=== PATIENT | female | born 1985 | race Caucasian/White ===

== ENCOUNTER 2018-12-29 16:07 | Emergency (ER) | payer OTHER ==
[2018-12-29 16:15] VITALS: BP 132/71; PULSE 82; TEMP 98.3; BMI 29.2
--- NOTE | 2018-12-29 16:45 | PDOC ---
History of Present Illness - General Chief Complaint: ,Possible Stated Complaint: FETUS NOT MOVING Time Seen by Provider: 12/29/18 16:27 History Source: Patient Exam Limitations: Language Barrier (phone int used) - History of Present Illness Initial Comments: 12/29/18 16:40 Patient is 33F with history of ectopic , infertility here today because she states that she can not feel her baby move today. Denies abdominal pain, fever, chills, nausea, vomiting. Denies vaginal pain, discharge, bleeding. Patient states that she's concerned because her prior was an ectopic. Denies chest pain, shortness of breath, leg swelling. Past History - Past Medical History Allergies/Adverse Reactions: Allergies Allergy/AdvReac Type Severity Reaction Status Date / Time No Known Allergies Allergy Verified 12/29/18 17:14 Home Medications: Ambulatory Orders Vit 93/Iron Fum/Folic [ Formula Tablet] 1 tablet PO DAILY 12/29 COPD: No - Reproductive History (#): 1 - Suicide/Smoking/Psychosocial Hx Smoking History: Never smoked Hx Alcohol Use: No Drug/Substance Use Hx: No Substance Use Type: None Review of Systems - Review of Systems Comments:: 12/29/18 16:44 GENERAL/CONSTITUTIONAL: No fever or chills. No weakness. HEAD, EYES, EARS, NOSE AND THROAT: No change in vision. No sore throat. CARDIOVASCULAR: No chest pain or shortness of breath RESPIRATORY: No cough, wheezing, or hemoptysis. GASTROINTESTINAL: No nausea, vomiting, diarrhea or constipation. GENITOURINARY: No dysuria, frequency, or change in urination. MUSCULOSKELETAL: No joint or muscle swelling or pain. No neck or back pain. SKIN: No rash NEUROLOGIC: No headache, vertigo, loss of consciousness, or change in strength/ sensation. ALLERGIC/IMMUNOLOGIC: No hives or skin allergy. *Physical Exam - Vital Signs Last Vital Signs Temp Pulse Resp BP Pulse Ox 98.3 F 82 18 132/71 99 12/29/18 16:12 12/29/18 16:12 12/29/18 16:12 12/29/18 16:12 12/29/18 16:12 - Physical Exam Comments: 12/29/18 16:45 GENERAL: Awake, alert, and fully oriented, in no acute distress HEAD: No signs of trauma, normocephalic, atraumatic EYES: PERRLA, EOMI, sclera anicteric, conjunctiva clear ENT: Auricles normal inspection, hearing grossly normal, nares patent, oropharynx clear without exudates. Moist mucosa NECK: Normal ROM, supple, no lymphadenopathy, JVD, or masses LUNGS: No distress, speaks full sentences, clear to auscultation bilaterally HEART: Regular rate and rhythm, normal S1 and S2, no murmurs, rubs or gallops, peripheral pulses normal and equal bilaterally. ABDOMEN: Soft, nontender, normoactive bowel sounds. No guarding, no rebound. No masses EXTREMITIES: Normal inspection, Normal range of motion, no edema. No clubbing or cyanosis. NEUROLOGICAL: Cranial nerves II through XII grossly intact. Normal speech, normal gait, no focal sensorimotor deficits SKIN: Warm, Dry, normal turgor, no rashes or lesions noted. Moderate Sedation - Procedure Monitoring Vital Signs: Procedure Monitoring Vital Signs Temperature 98.3 F 12/29/18 16:12 Pulse Rate 82 12/29/18 16:12 Respiratory Rate 18 12/29/18 16:12 Blood Pressure 132/71 12/29/18 16:12 O2 Sat by Pulse Oximetry (%) 99 12/29/18 16:12 ED Treatment Course - LABORATORY CBC & Chemistry Diagram: 12/29/18 16:50 12/29/18 16:50 - RADIOLOGY Radiology Studies Ordered: Category Date Time Status TRANSVAGINAL US PREG [US] Stat Ultrasound 12/29/18 16:38 Ordered Medical Decision Making - Medical Decision Making 12/29/18 16:46 Patient is 33F with history of ectopic and infertility here today with concerns over her . No pain on exam. Will confirm , patient has outpatient follow up. 12/29/18 18:33 CBC normal. CMP normal. Serum preg elevated, 40k. TVUS shows demise, no other issues. Patient advised of results. Will discharge with outpatient ob follow up and expectant management. 12/29/18 18:54 Patient left before T&S completed. *DC/Admit/Observation/Transfer Diagnosis at time of Disposition: demise - Discharge Dispostion Disposition: HOME Condition at time of disposition: Good Decision to Admit order: No - Referrals - Patient Instructions Printed Discharge Instructions: DI for Miscarriage Additional Instructions: I am sorry, but you were found to have a miscarriage today. You should expect to have vaginal bleeding with some cramping in the next few days. Please return to the ED immediately if you have any new, worsening or concerning symptoms, especially increasing pain, shortness of breath, and fever. Please follow up with your OBGYN doctor this week. [phone] Lo siento, felipe se encontr que tuvo un aborto espontneo hoy. Debera esperar sangrado vaginal con clicos en los prximos lara. Regrese de inmediato a la rupa de emergencias si tiene sntomas nuevos, que empeoran o estn relacionados con ellos, especialmente dolor en aumento, falta de aliento y fiebre. Por favor madiha un seguimiento con bella doctor OBGYN esta semana. Print Language: BURUNDIAN - Post Discharge Activity
[2018-12-29 17:04] LABS: HEMATOCRIT 37.2 % (32.4-45.2); HEMOGLOBIN 13.1 GM/dL (10.7-15.3); MCH 31.9 pg (25.7-33.7); MCHC 35.3 g/dl (32.0-36.0); MEAN CELL VOLUME 90.5 fl (80-96); PLATELET COUNT 215 K/MM3 (134-434); RBC 4.11 M/mm3 (3.60-5.2); RDW 15.3 % (11.6-15.6); WHITE BLOOD COUNT 9.1 K/mm3 (4.0-10.0)
--- NOTE | 2018-12-29 17:24 | PDOC ---
Attending Attestation - HPI HPI: 12/29/18 18:13 The patient is a 33 year old female with past medical history significant for infertility presents to the emergency department with concern. The patient reports she was concerned that she couldnt feel her baby move. Denies fever, chills, chest pain, SOB, abdominal pain, back pain, dysuria, hematuria, vaginal bleeding or discharge. 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 PCP: Gerardo Loganton Azam. - Physicial Exam PE: 12/29/18 18:13 GENERAL: The patient is in no acute distress. HEAD: Normal with no signs of trauma. EYES: PERRLA, EOMI, sclera anicteric, conjunctiva clear. ENT: Ears normal, nares patent, oropharynx clear without exudates. Moist mucous membranes. NECK: Normal range of motion, supple without lymphadenopathy, JVD, or masses. LUNGS: Breath sounds equal, clear to auscultation bilaterally. No wheezes, and no crackles. HEART:Regular rate and rhythm, normal S1 and S2 without murmur, rub or gallop. ABDOMEN: Soft, nontender, normoactive bowel sounds. No guarding, no rebound. No masses palpable. EXTREMITIES: Normal range of motion, no edema. No clubbing or cyanosis. No erythema, or tenderness. NEUROLOGICAL: Cranial nerves II through XII grossly intact. Normal speech. No focal neurological deficits. MUSCULOSKELETAL: Back non-tender to palpation, no CVA tenderness SKIN: Warm, Dry, normal turgor, no rashes or lesions noted. - Medical Decision Making 12/29/18 18:11 DATE OF SERVICE: 2018-12-29 17:01:29 EXAM: Transabdominal and transvaginal OB ultrasound FINDINGS: Transabdominal sonography was performed. There is a single intrauterine fetus. Estimated gestational age according to CRL would be 8 weeks and 5 days however there is no cardiac activity visible. Findings suggest probable demise. There is no free fluid. The cervix is grossly closed. IMPRESSION: There is a single intrauterine fetus. Estimated gestational age according to CRL would be 8 weeks 5 days however there is no cardiac activity visible. Finding suggests demise. THIS DOCUMENT HAS BEEN ELECTRONICALLY SIGNED Silvestre Frances MD 12/29/2018 17:38 EST 12/29/18 18:12 Documentation prepared by Luz Marina Maharaj, acting as medical claims examiner for Vee Alvarado MD. <Luz Marina Maharaj - Last Filed: 12/29/18 18:12> - Resident Resident Name: Heri Rothman - ED Attending Attestation I have performed the following: I have examined & evaluated the patient, The case was reviewed & discussed with the resident, I agree w/resident's findings & plan, Exceptions are as noted - Medical Decision Making 12/29/18 17:39 Laboratory Tests 12/29/18 16:50 WBC 9.1 Hgb 13.1 Hct 37.2 Plt Count 215 12/29/18 18:36 Laboratory Tests 12/29/18 16:50 Sodium 137 Potassium 3.7 Chloride 107 Carbon Dioxide 20 L BUN 8 Creatinine 0.4 L Random Glucose 104 Beta HCG, Quant 85858.8 <Vee Alvarado - Last Filed: 12/29/18 18:37>
[2018-12-29 17:54] LABS: ALBUMIN 3.7 g/dl (3.4-5.0); ANION GAP 10 MMOL/L (8-16); BILIRUBIN,TOTAL 0.2 mg/dL (0.2-1); BLOOD UREA NITROGEN 8 mg/dL (7-18); CALCIUM 8.6 mg/dL (8.5-10.1); CHLORIDE 107 mmol/L (98-107); CO2 20 mmol/L (21-32); CREATININE 0.4 mg/dL (0.55-1.3); GLUCOSE,RANDOM 104 mg/dL (74-106); POTASSIUM 3.7 mmol/L (3.5-5.1); SGOT/AST 13 U/L (15-37); SGPT/ALT 26 U/L (13-61); SODIUM 137 mmol/L (136-145); TOT PROT 7.2 g/dl (6.4-8.2)
[2018-12-29 17:56] LABS: ALK PHOS 68 U/L (45-117)
== END 2018-12-29 18:53 | disposition home or self-care (01) ==
LOC: JER 16:07
DX: O26.891 Other specified pregnancy related conditions, first trimester (principal); O02.1 Missed abortion; Z3A.01 Less than 8 weeks gestation of pregnancy
CPT/HCPCS: 36415; 76817-TC; 80053; 84702; 85027; 86850; 86900; 86901; 99282-25

== ENCOUNTER 2019-02-04 10:31 | Emergency (ER) | payer OTHER ==
[2019-02-04 10:50] VITALS: BP 128/68; PULSE 62; TEMP 98.1; BMI 28.3
--- NOTE | 2019-02-04 11:57 | PDOC ---
History of Present Illness <Brielle Nelson - Last Filed: 02/04/19 13:06> - General History Source: Patient Exam Limitations: Language Barrier (Cyracom used. Georgian primarily. Diagram Clerk [id number]) <Ashley Christie - Last Filed: 02/05/19 08:22> - General Chief Complaint: Headache Stated Complaint: HEADACHE Time Seen by Provider: 02/04/19 11:27 Past History <Brielle Nelson - Last Filed: 02/04/19 13:06> - Travel Traveled outside of the country in the last 30 days: No Close contact w/someone who was outside of country & ill: No - Past Medical History COPD: No - Reproductive History (#): 1 Para: 0 Therapeutic (s) & number: No Tubal Ligation: No Spontaneous : 1 - Immunization History Immunization Up to Date: Yes - Suicide/Smoking/Psychosocial Hx Smoking History: Never smoked Hx Alcohol Use: No Drug/Substance Use Hx: No Substance Use Type: None <Ashley Christie - Last Filed: 02/05/19 08:22> - Past Medical History Allergies/Adverse Reactions: Allergies Allergy/AdvReac Type Severity Reaction Status Date / Time No Known Allergies Allergy Verified 02/04/19 10:47 Home Medications: Ambulatory Orders Vit 93/Iron Fum/Folic [ Formula Tablet] 1 tablet PO DAILY 12/29 Review of Systems - Review of Systems Able to Perform ROS?: Yes Comments:: 02/04/19 11:52 CONSTITUTIONAL: Absent: fever, chills, diaphoresis, generalized weakness, malaise, loss of appetite HEENT: Absent: rhinorrhea, nasal congestion, throat pain, throat swelling, difficulty swallowing, mouth swelling, ear pain, eye pain, visual Changes CARDIOVASCULAR: Absent: chest pain, loss of consciousness, palpitations, irregular heart rate, peripheral edema RESPIRATORY: Absent: cough, shortness of breath, dyspnea with exertion, orthopnea, wheezing, stridor, hemoptysis GASTROINTESTINAL: Absent: abdominal pain, abdominal distension, nausea, vomiting, diarrhea, constipation, melena, hematochezia GENITOURINARY: Absent: dysuria, frequency, urgency, hesitancy, hematuria, flank pain, genital pain MUSCULOSKELETAL: Absent: myalgia, arthralgia, joint swelling SKIN: Absent: rash, itching, pallor HEMATOLOGIC/IMMUNOLOGIC: Absent: easy bleeding, easy bruising, lymphadenopathy, frequent infections ENDOCRINE: Absent: unexplained weight gain, unexplained weight loss, heat intolerance, cold intolerance NEUROLOGIC: Present: headache, tingling to extremities Absent: focal weakness or paresthesias, dizziness, unsteady gait, seizure, mental status changes, bladder or bowel incontinence PSYCHIATRIC: Absent: anxiety, depression, suicidal or homicidal ideation, hallucinations. Is the patient limited Macedonian proficient: No <Ashley Christie - Last Filed: 02/05/19 08:22> *Physical Exam - Vital Signs Last Vital Signs Temp Pulse Resp BP Pulse Ox 98.1 F 62 17 128/68 99 02/04/19 10:47 02/04/19 10:47 02/04/19 10:47 02/04/19 10:47 02/04/19 10:47 <Brielle Nelson - Last Filed: 02/04/19 13:06> - Vital Signs Last Vital Signs Temp Pulse Resp BP Pulse Ox 98.1 F 62 17 128/68 99 02/04/19 10:47 02/04/19 10:47 02/04/19 10:47 02/04/19 10:47 02/04/19 10:47 - Physical Exam Comments: 02/04/19 11:53 GENERAL: Well developed, well nourished. Awake and alert. No acute distress. HEENT: Normocephalic, atraumatic. PERRLA, EOMI. No conjunctival pallor. Sclera are non- icteric. Moist mucous membranes. Oropharynx is clear. Increased fluid behind the R TM, no bulging or erythema . L TM normal appearing NECK: Supple. Full ROM. No JVD. Carotid pulses 2+ and symmetric, without bruits. No thyromegaly. No lymphadenopathy. MSK: Normal range of motion at all joints. No bony deformities or tenderness. No CVA tenderness. EXTREMITIES: No cyanosis. No clubbing. No edema. No calf tenderness. SKIN: Warm and dry. Normal capillary refill. No rashes. No jaundice. NEUROLOGICAL: Alert, awake, appropriate. Cranial nerves 2-12 intact. No deficits to light touch and temperature in face, upper extremities and lower extremities. No motor deficits in the in face, upper extremities and lower extremities. Normoreflexic in the upper and lower extremities. Normal speech. Toes are down- going bilaterally. Gait is normal without ataxia. PSYCHIATRIC: Cooperative. Good eye contact. Appropriate mood and affect. <Ashley Christie - Last Filed: 02/05/19 08:22> ED Treatment Course - ADDITIONAL ORDERS Additional order review: Laboratory Results 02/04/19 11:45 Urine HCG, Qual Negative - Medications Given in the ED: ED Medications Discontinued Medications Generic Name Dose Route Start Last Admin Trade Name Alec PRN Reason Stop Dose Admin Acetaminophen 1,000 mg 02/04/19 11:58 02/04/19 12:44 Ofirmev Injection - IVPB 02/04/19 11:59 1,000 mg ONCE ONE Administration Diphenhydramine HCl 12.5 mg 02/04/19 11:58 02/04/19 12:44 Benadryl Injection - IVPUSH 02/04/19 11:59 12.5 mg ONCE ONE Administration Sodium Chloride 1,000 mls @ 1,000 mls/hr 02/04/19 11:58 02/04/19 12:44 Normal Saline - IV 02/04/19 12:57 1,000 mls/hr ASDIR STA Administration Metoclopramide HCl 10 mg 02/04/19 11:58 02/04/19 12:44 Reglan Injection - IVPB 02/04/19 11:59 10 mg ONCE ONE Administration <Brielle Nelson - Last Filed: 02/04/19 13:06> Medical Decision Making - Medical Decision Making The patient was seen and evaluated in conjunction with midlevel provider under my direct supervision, ancillary studies were reviewed. I agree with the plan as outlined by GUCCI Christie. HPI, workup/dispo as outlined. VS reviewed, wnl. CT head unremarkable, meds given, headache treatment, reassess 02/04/19 13:06 <Brielle Nelson - Last Filed: 02/04/19 13:06> - Medical Decision Making 02/04/19 11:55 The patient is a 34-year-old female with past medical history of headaches, who presents to the ER today for headache lasting 2 weeks. Patient states that the headache started gradually and the pain got worse over time. She states that the pain goes around her forehead. She states that she feels numbness and tingling along the head as well as in the hands and feet bilaterally. She tried taking 2 Tylenol at home yesterday with little relief of her symptoms. Admits to associated nausea. Denies fevers, chills, neck pain, shortness of breath, difficulty breathing, vomiting, gait changes, LOC, head trauma weakness to the extremities. A/P: headache Suspect a complex migraine at this time Labs, urine, CT head ordered IV insert with reglan, benadryl and ofirmev ordered Low suspicion for ICH as symptoms have lasted longer than 2 weeks and did not have a sudden onset Re-evaluate 02/04/19 15:[address] is negative for acute pathology Pt reports relief of symptoms after reglan, Benadryl and ofirmev DC home with neuro consult I discussed the physical exam findings, ancillary test results and final diagnoses with the patient. I answered all of the patient's questions. The patient was satisfied with the care received and felt comfortable with the discharge plan and treatment plan. The Patient agrees to follow up with the primary care physician/specialist within 24-72 hours. Return precautions were given. <Ashley Christie - Last Filed: 02/05/19 08:22> *DC/Admit/Observation/Transfer <Brielle Nelson - Last Filed: 02/04/19 13:06> - Discharge Dispostion Decision to Admit order: No <Ashley Christie - Last Filed: 02/05/19 08:22> Diagnosis at time of Disposition: Headache Qualifiers: Headache type: unspecified Headache chronicity pattern: acute headache Intractability: not intractable Qualified Code(s): R51 - Headache - Discharge Dispostion Disposition: HOME Condition at time of disposition: Stable - Referrals Referrals: Alexander Horan DO [Staff Physician] - - Patient Instructions Printed Discharge Instructions: DI for Headache Additional Instructions: You were evaluated for your headache today Please take Motrin 600mg every 6 hours for the next 24 hours to prevent the headache from returning Drink plenty of fluids and get plenty of rest Follow up with neurology for further evaluation. Return to the ED for worsening pain, fever, visual changes or if you have any changes in your symptoms Te evaluaron por tu kathleenor de fiordailza hoy Painter Motrin 600 mg cada 6 horas abraham las prximas 24 horas para evitar que el dolor de fiordaliza regrese. Nathalia muchos lquidos y descansa mucho. Seguimiento con neurologa para bella posterior evaluacin. Regrese a la rupa de emergencias para empeorar el dolor, la fiebre, los cambios visuales o si tiene algn cambio en mariana sntomas. Print Language: GUAMANIAN - Post Discharge Activity Forms/Work/School Notes: Back to Work
[2019-02-04] MEDS ORDERED: METOCLOPRAMIDE HCL INJECTION 10 MG/2 ML VIAL IVPB ONE (11:58)
[2019-02-04] MEDS ORDERED: ACETAMINOPHEN 1000 MG/100 ML VIAL (NON FORMULARY) IVPB ONE (11:58)
[2019-02-04] MEDS ORDERED: SODIUM CHLORIDE 1,000 ML IV STA (11:58)
[2019-02-04] MEDS ORDERED: METOCLOPRAMIDE HCL INJECTION 10 MG/2 ML VIAL ONE (12:32)
[2019-02-04] MEDS ORDERED: ACETAMINOPHEN INJECTION 100 ML IVPB ONE (12:32)
== END 2019-02-04 17:13 | disposition home or self-care (01) ==
LOC: JER 10:31
PROC: 3E033GC Introduction of Other Therapeutic Substance into Peripheral Vein, Percutaneous Approach (ICD-10-PCS; principal; 2019-02-04)
PROC: 3E033GC Introduction of Other Therapeutic Substance into Peripheral Vein, Percutaneous Approach (ICD-10-PCS; 2019-02-04)
PROC: 3E033NZ Introduction of Analgesics, Hypnotics, Sedatives into Peripheral Vein, Percutaneous Approach (ICD-10-PCS; 2019-02-04)
DX: R51 Headache (principal)
CPT/HCPCS: 70450-TC; 84703; 96374; 96375; 99282-25; J0131; J7030

== ENCOUNTER 2019-03-31 22:25 | Emergency (ER) | payer OTHER ==
[2019-03-31 22:34] VITALS: BMI 30.7
[2019-03-31] MEDS ORDERED: METOCLOPRAMIDE HCL INJECTION 10 MG/2 ML VIAL IVPUSH ONE (23:14)
[2019-03-31] MEDS ORDERED: ACETAMINOPHEN 1000 MG/100 ML VIAL (NON FORMULARY) IVPB ONE (23:14)
[2019-03-31] MEDS ORDERED: ACETAMINOPHEN INJECTION 100 ML IVPB ONE (23:23)
[2019-03-31] MEDS ORDERED: METOCLOPRAMIDE HCL INJECTION 10 MG/2 ML VIAL ONE (23:23)
--- NOTE | 2019-04-01 00:39 | PDOC ---
History of Present Illness - General Chief Complaint: Headache Stated Complaint: SOB/HEADACHE Time Seen by Provider: 03/31/19 23:09 History Source: Patient Exam Limitations: No Limitations - History of Present Illness Initial Comments: 04/01/19 00:37 Patient is a 34-year-old female with history of headache presumed to be migraine here with complaints of headache since October. States that's she has seen a neurologist at [facility], MRI done noted to be negative, and was put on amitriptyline. Patient states that since she was attempting to get she decided to get off the amitriptyline and has not taken any medication since per the advice of the infertility specialist. States she has not taken anything for pain with continues to have continuous pain since October. Today she is having nausea and vomiting and after vomiting and had chest pain so is here for evaluation. She is concerned that something is wrong with her heart. PMD: at [facility] PMHX: As above PSOCHX: neg etoh, drug, cig ALL: NKDA GENERAL/CONSTITUTIONAL: No fever or chills. No weakness. No weight change. HEAD, EYES, EARS, NOSE AND THROAT: No change in vision. No ear pain or discharge. No sore throat. CARDIOVASCULAR: No chest pain or shortness of breath. RESPIRATORY: No cough, wheezing, or hemoptysis. GASTROINTESTINAL: (+) nausea, vomiting, (-) diarrhea or constipation. No rectal bleeding. GENITOURINARY: No dysuria, frequency, or change in urination. MUSCULOSKELETAL: No joint or muscle swelling or pain. No neck or back pain. SKIN AND BREASTS: No rash or easy bruising. NEUROLOGIC: (+) headache, (-) vertigo, loss of consciousness, or loss of sensation. PSYCHIATRIC: No depression or anxiety. ENDOCRINE: No increased thirst. No abnormal weight change. HEMATOLOGIC/LYMPHATIC: No anemia, easy bleeding, or history of blood clots. ALLERGIC/IMMUNOLOGIC: No hives or skin allergy. No latex allergy. GENERAL: The patient is awake, alert, and fully oriented, in mild distress. HEAD: Normal with no signs of trauma. EYES: Pupils equal, round and reactive to light, extraocular movements intact, sclera anicteric, conjunctiva clear. ENT: Ears normal, nares patent, oropharynx clear without exudates. Moist mucous membranes. NECK: Normal range of motion, supple without lymphadenopathy, JVD, or masses. LUNGS: Breath sounds equal, clear to auscultation bilaterally. No wheezes, and no crackles. HEART: Regular rate and rhythm, normal S1 and S2 without murmur, rub, (+) tenderness left chest. ABDOMEN: Soft, nontender, normoactive bowel sounds. No guarding, no rebound. No masses. EXTREMITIES: Normal range of motion, no edema. No clubbing or cyanosis. No cords, erythema, or tenderness. NEUROLOGICAL: Cranial nerves II through XII grossly intact. Normal speech, normal gait, or cerebella function intact PSYCH: Normal mood, normal affect. SKIN: Warm, Dry, normal turgor, no rashes or lesions noted. Past History - Past Medical History Allergies/Adverse Reactions: Allergies Allergy/AdvReac Type Severity Reaction Status Date / Time No Known Allergies Allergy Verified 03/31/19 22:34 Home Medications: Ambulatory Orders NK [No Known Home Medication] 03/31/19 COPD: No - Reproductive History (#): 1 Para: 0 Therapeutic (s) & number: No Tubal Ligation: No Spontaneous : 1 - Immunization History Immunization Up to Date: Yes - Suicide/Smoking/Psychosocial Hx Smoking History: Never smoked Hx Alcohol Use: No Drug/Substance Use Hx: No Substance Use Type: None *Physical Exam - Vital Signs Last Vital Signs Temp Pulse Resp BP Pulse Ox 97.8 F 78 18 137/91 100 03/31/19 22:32 03/31/19 22:32 03/31/19 22:32 03/31/19 22:32 03/31/19 22:32 ED Treatment Course - ADDITIONAL ORDERS Additional order review: Laboratory Results 03/31/19 23:40 Creatine Kinase 110 Troponin I < 0.02 - Medications Given in the ED: ED Medications Discontinued Medications Generic Name Dose Route Start Last Admin Trade Name Freq PRN Reason Stop Dose Admin Acetaminophen 1,000 mg 03/31/19 23:14 03/31/19 23:45 Ofirmev Injection - IVPB 03/31/19 23:15 1,000 mg ONCE ONE Administration Diphenhydramine HCl 25 mg 03/31/19 23:14 04/01/19 00:05 Benadryl Injection - IVPUSH 03/31/19 23:15 25 mg ONCE ONE Administration Metoclopramide HCl 10 mg 03/31/19 23:14 04/01/19 00:10 Reglan Injection - IVPUSH 03/31/19 23:15 10 mg ONCE ONE Administration Medical Decision Making - Medical Decision Making 04/01/19 00:37 Patient is a 34-year-old female with history of headache presumed to be migraine here with complaints of headache since October. States that's she has seen a neurologist at [facility], MRI done noted to be negative, and was put on amitriptyline. Patient states that since she was attempting to get she decided to get off the amitriptyline and has not taken any medication since per the advice of the infertility specialist. States she has not taken anything for pain with continues to have continuous pain since October. Today she is having nausea and vomiting and after vomiting and had chest pain so is here for evaluation. She is concerned that something is wrong with her heart. Symptoms consistent with migraine headache will treat symptomatically with Tylenol IV, Reglan IV, Benadryl IV, IV fluids. Left Chest pain which is reproducible, most consistent with chest wall pain. Will get a troponin and EKG EKG: SR rate 75, NAD, T-wave inversion in V4 04/01/19 00:47 Laboratory Tests 03/31/19 03/31/19 23:40 23:40 Creatine Kinase 110 Troponin I < 0.02 Serum , Qual Negative Patient is sleeping and resting comfortably.I discussed the physical exam findings, ancillary test results and final diagnoses with the patient. I answered all of the patient's questions. The patient was satisfied with the care received and felt comfortable with the discharge plan and treatment plan. The Patient agrees to follow up with the primary care physician within 24-72 hours. 04/01/19 03:45 *DC/Admit/Observation/Transfer Diagnosis at time of Disposition: Headache Qualifiers: Headache type: unspecified Headache chronicity pattern: unspecified pattern Intractability: not intractable Qualified Code(s): R51 - Headache Chest pain Qualifiers: Chest pain type: unspecified Qualified Code(s): R07.9 - Chest pain, unspecified - Discharge Dispostion Disposition: HOME Condition at time of disposition: Stable - Referrals - Patient Instructions Printed Discharge Instructions: DI for Migraine, DI for Chest Pain Additional Instructions: Your Discharge Instructions: You must call primary care physician within 24 hours to arrange follow-up. Return to the Emergency Department with any new, persistent or worsening symptoms, for fever, chills, SOB, dizziness or any other concerning changes that may occur. Must follow up with her neurologist and your primary care doctor in 1-2 days. - Post Discharge Activity
[2019-04-01 02:18] VITALS: BP 115/68; PULSE 80; TEMP 97.7
--- NOTE | 2019-04-01 15:15 | EKG ---
Test Reason : Blood Pressure : / mmHG Vent. Rate : 075 BPM Atrial Rate : 075 BPM P-R Int : 162 ms QRS Dur : 096 ms QT Int : 410 ms P-R-T Axes : 056 038 038 degrees QTc Int : 457 ms NORMAL SINUS RHYTHM POSSIBLE ANTERIOR INFARCT , AGE UNDETERMINED ABNORMAL ECG NO PREVIOUS ECGS AVAILABLE Confirmed by JUSTIN WILLSON MD ([id number]) on 04/01/2019 3:15:34 PM Referred By: Confirmed By:JUSTIN WILLSON MD
== END 2019-04-01 02:45 | disposition home or self-care (01) ==
LOC: JER 22:25
PROC: 3E033GC Introduction of Other Therapeutic Substance into Peripheral Vein, Percutaneous Approach (ICD-10-PCS; principal; 2019-03-31)
PROC: 3E033GC Introduction of Other Therapeutic Substance into Peripheral Vein, Percutaneous Approach (ICD-10-PCS; 2019-03-31)
PROC: 3E033NZ Introduction of Analgesics, Hypnotics, Sedatives into Peripheral Vein, Percutaneous Approach (ICD-10-PCS; 2019-03-31)
DX: R51 Headache (principal); R07.89 Other chest pain
CPT/HCPCS: 36415; 82550; 84484; 84703; 93005; 93010; 96374; 96375; 99282-25; J0131

== ENCOUNTER 2019-12-16 21:33 | Emergency (ER) | payer OTHER ==
[2019-12-16 21:44] VITALS: BP 144/89; PULSE 68; TEMP 97.8; BMI 25.9
--- NOTE | 2019-12-16 22:06 | PDOC ---
History of Present Illness - General Chief Complaint: Pain, Acute Stated Complaint: BURNING SENSATION TO LEFT BREAT History Source: Patient Exam Limitations: No Limitations - History of Present Illness Initial Comments: 12/16/19 22:00 This is a 34-year-old female who comes in complaining of burning sensation in her left breast area and burping of excess acid. Patient patient said that she has had similar symptoms in the past and she was given a cream for the breast discomfort and it resolved with the cream. Patient has been taking Tums for the burping of excess gas but says they used to help but is no longer helping. Patient denies any chest pain, shortness of breath, nausea, vomiting or diarrhea. Patient is otherwise healthy. Patient does not have a primary care doctor that she can follow-up with or in OB Allergies: as per nursing notes Past Medical History: none Social history: Lives with family. No smoking. No alcohol. No illicit drugs. Surgical history: None General: No fevers or chills, no weakness, no weight loss HEENT: No change in vision. No sore throat,. No ear pain CardioVascular: no chest discomfort. No shortness of breath BREASTS burning sensation to the tissue of the left breast: Respiratory:No cough, or wheezing. Gastrointestinal: no nausea, vomiting, diarrhea or constipation, No rectal bleeding Genitourinary: No dysuria, hematuria, or frequency Musculoskeletal: No joint or muscle pain or swelling Neurologic: No headache, vertigo, dizziness or loss of consciousness Psychiatric: nor depression Skin: No rashes or easy bruising Endocrine: no increased thirst or abnormal weight change Allergic: no skin or latex allergy All other systems reviewed and normal GENERAL: The patient is awake, alert, and fully oriented, in no acute distress. HEENT:Head is normal with no signs of trauma. Eyes: Pupils equal, round and reactive to light, Ears, and Throat are normal. Neck is supple. No Lymphadenopathy. Left Breast: There is a very early mild fungal infection of the area underneath the breast otherwise normal breast exam no masses or tenderness Abdomen: Soft nontender normal bowel sounds EXTREMITIES:atraumatic, Normal range of motion, no edema. NEUROLOGICAL: Normal speech, normal gait. PSYCH: Normal mood, normal affect. SKIN: Warm, Dry, normal turgor, no rashes or lesions noted. Assessment and plan: This is a 34-year-old female who comes in with a mild Vielka infection of the area underneath her left breast. Patient also is having some acid reflux. 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 Past History - Past Medical History Allergies/Adverse Reactions: Allergies Allergy/AdvReac Type Severity Reaction Status Date / Time No Known Allergies Allergy Verified 12/16/19 21:34 Home Medications: Ambulatory Orders Nystatin Cream [Mycostatin Cream -] 1 applic TP DAILY #1 tube 12/16/19 COPD: No - Reproductive History (#): 1 Para: 0 Therapeutic (s) & number: No Tubal Ligation: No Spontaneous : 1 - Immunization History Immunization Up to Date: Yes - Psycho Social/Smoking Cessation Hx Smoking History: Never smoked Have you smoked in the past 12 months: No Information on smoking cessation initiated: No Hx Alcohol Use: No Drug/Substance Use Hx: No Substance Use Type: None *Physical Exam - Vital Signs Last Vital Signs Temp Pulse Resp BP Pulse Ox 97.8 F 68 16 144/89 100 12/16/19 21:34 12/16/19 21:34 12/16/19 21:34 12/16/19 21:34 12/16/19 21:34 Discharge - Discharge Information Problems reviewed: Yes Clinical Impression/Diagnosis: Rash in adult Condition: Stable Disposition: HOME - Admission No - Follow up/Referral - Patient Discharge Instructions Additional Instructions: Obtenga la receta para la pomada y aplquela al moiz afectada ej vez al da hasta que los sntomas se hayan resuelto. Lo llamaremos para ej jasiel con la clnica, es importante que cumpla con la jasiel y el seguimiento. Cuando recoja bella receta de la farmacia, obtenga Pepcid o Zantac de venta tony y tmelos julien se indica en la caja. Regrese al departamento de emergencias inmediatamente con CUALQUIER sntoma nuevo, persistente o que empeore. Contine con los medicamentos recetados previamente por bella mdico. Debe hacer un seguimiento con bella mdico de atencin primaria lo antes posible con respecto a la visita al departamento de emergencias de horobb. . Asegrese de que bella mdico revise los resultados de bella evaluacin de emergencia. Lamin por venir trini al Departamento de emergencias por bella atencin. Fue un placer verte trini. Tenga en cuenta que bella evaluacin es INCOMPLETA hasta que realice un seguimiento con bella mdico. Get the prescription filled for the ointment and apply to the affected area once a day until symptoms have resolved. We will call you for an appointment with the clinic it is important you keep the appointment and follow-up. When you fruit picker your prescription from the pharmacy get some [id number] Pepcid or Zantac and take as directed on the box. Return to the emergency department immediately with ANY new, persistent or worsening symptoms. Continue any medications as previously prescribed by your physician. You should follow up with your primary doctor as soon as possible regarding today's emergency department visit. . Please make sure your doctor reviews the results of your emergency evaluation. Thank you for coming to the Emergency Department today for your care. It was a pleasure to see you today. Please note that your evaluation is INCOMPLETE until you follow-up with your doctor. - Post Discharge Activity
== END 2019-12-16 22:20 | disposition home or self-care (01) ==
LOC: FER 21:33
DX: R21 Rash and other nonspecific skin eruption (principal)
CPT/HCPCS: 99283-25

== ENCOUNTER 2024-06-18 22:56 | Emergency (ER) | payer OTHER ==
[2024-06-18] MEDS ORDERED: METOCLOPRAMIDE HCL INJECTION 10 MG/2 ML VIAL IM ONE (23:14)
[2024-06-18 23:16] VITALS: BP 159/96; PULSE 73; RESP 18; TEMP 97.9; BMI 26.6
[2024-06-18] MEDS ORDERED: METOCLOPRAMIDE HCL 10 MG TABLET (FP) PO ONE (23:25)
[2024-06-18] MEDS ORDERED: KETOROLAC TROMETHAMINE 60 MG/2 ML VIAL ONE (23:25)
[2024-06-18] MEDS: KETOROLAC TROMETHAMINE 60 MG/2 ML VIAL IM ONE (23:52)
[2024-06-18] MEDS: METOCLOPRAMIDE HCL 10 MG TABLET (FP) PO ONE (23:53)
== END 2024-06-19 00:40 | disposition home or self-care (01) ==
LOC: FER 22:56
PROC: 3E0133Z Introduction of Anti-inflammatory into Subcutaneous Tissue, Percutaneous Approach (ICD-10-PCS; principal; 2024-06-18)
DX: G43.909 Migraine, unspecified, not intractable, without status migrainosus (principal)
CPT/HCPCS: 96372; 99284-25

== ENCOUNTER 2024-10-13 08:48 | Emergency (ER) | payer OTHER ==
[2024-10-13 08:53] VITALS: BP 136/93; PULSE 68; RESP 16; TEMP 97.9; BMI 28.3
[2024-10-13] MEDS ORDERED: AMOX TR/POT CLAV 875MG/125MG TABLETS (FP) ONE (09:14)
[2024-10-13] MEDS ORDERED: IBUPROFEN 400 MG TABLET (FP) PO ONE (09:14)
[2024-10-13] MEDS: IBUPROFEN 600 MG TABLET (FP) PO ONE (09:16)
[2024-10-13] MEDS: AMOX TR/POT CLAV 875MG/125MG TABLETS (FP) PO ONE (09:16)
== END 2024-10-13 09:53 | disposition home or self-care (01) ==
LOC: FER 08:48
DX: H66.91 Otitis media, unspecified, right ear (principal)
CPT/HCPCS: 99283-25